=== PATIENT | male | born 1970 | race Caucasian/White ===

== ENCOUNTER 2020-08-01 20:54 | Outpatient (REF) | payer BC, SELFPAY ==
[2020-08-01 21:43] LABS: ALT 75 U/L (16-63); Alkaline Phosphatase 69 U/L (46-116); Anion Gap 9.5 mmol/L (3-11); BUN 13 mg/dL (7-18); Bilirubin, Total 0.2 mg/dL (0.2-1.0); CO2 24.5 mmol/L (21.0-32.0); CREATININE 0.75 mg/dL (0.70-1.30); Chloride 102 mmol/L (98-107); Cholesterol 333 mg/dL (<200); Glucose 96 mg/dL (74-106); HDL Cholesterol 31 mg/dL (40-60); Potassium 4.2 mmol/L (3.5-5.1); Sodium 136 mmol/L (136-145); Total Protein 6.9 g/dL (6.4-8.2); Triglyceride 1529 mg/dL (<150)
[2020-08-01 22:08] LABS: AST 57 U/L (15-37); LDL CHOLESTEROL 123 mg/dL (<100)
[2020-08-05 11:29] LABS: Hepatitis C Ab w Rflx HCV PCR Negative (Negative)
== END 2020-08-01 21:14 ==
LOC: NCHCN 20:54
PROVIDERS: PCP Family Medicine; Visit Provider Nurse Practitioner Family
DX: Z00.00 Encounter for general adult medical examination without abnormal findings (principal); Z13.220 Encounter for screening for lipoid disorders; Z13.228 Encounter for screening for other metabolic disorders; Z11.59 Encounter for screening for other viral diseases
CPT/HCPCS: 80053; 80061; 83721; 86803

== ENCOUNTER 2020-09-10 18:20 | Outpatient (REF) | payer BC, SELFPAY ==
[2020-09-10 21:27] LABS: Albumin 3.8 g/dL (3.4-5.0); Alkaline Phosphatase 94 U/L (46-116); Anion Gap 9.5 mmol/L (3-11); BUN 17 mg/dL (7-18); Bilirubin, Total 0.3 mg/dL (0.2-1.0); CO2 27.5 mmol/L (21.0-32.0); CREATININE 0.95 mg/dL (0.70-1.30); Calcium 8.9 mg/dL (8.5-10.1); Chloride 100 mmol/L (98-107); Cholesterol 246 mg/dL (<200); Glucose 114 mg/dL (74-106); HDL Cholesterol 25 mg/dL (40-60); Potassium 4.4 mmol/L (3.5-5.1); Sodium 137 mmol/L (136-145); Total Protein 7.1 g/dL (6.4-8.2)
[2020-09-10 21:55] LABS: ALT 140 U/L (16-63)
[2020-09-10 21:57] LABS: AST 130 U/L (15-37)
[2020-09-10 22:01] LABS: Triglyceride 2102 mg/dL (<150)
[2020-09-10 22:31] LABS: LDL CHOLESTEROL 68 mg/dL (<100)
== END 2020-09-10 18:40 ==
LOC: NCHCN 18:20
PROVIDERS: PCP Family Medicine; Visit Provider Nurse Practitioner Family
DX: R79.89 Other specified abnormal findings of blood chemistry (principal); E78.5 Hyperlipidemia, unspecified
CPT/HCPCS: 80053; 80061; 83721

== ENCOUNTER 2020-10-21 16:32 | Outpatient (REF) | payer BC, SELFPAY ==
[2020-10-21 20:50] LABS: HCT 44.4 % (40.0-50.0); HGB 14.9 g/dL (13.5-17.5); MCHC 33.6 % (32.0-36.0); MCV 92.3 fL (80-95); MPV 9.9 fL (8.0-11.0); Platelet Count 219 10^3/uL (130-400); RBC 4.81 10^6/uL (4.36-5.78); RDW 12.5 % (11.8-14.1); RDW-SD 42.6 fL; WBC 3.74 10^3/uL (4.4-10.8)
[2020-10-21 20:59] LABS: ALT 111 U/L (16-63); Albumin 3.7 g/dL (3.4-5.0); Alkaline Phosphatase 86 U/L (46-116); Anion Gap 10.1 mmol/L (3-11); BUN 11 mg/dL (7-18); Bilirubin, Total 0.5 mg/dL (0.2-1.0); CO2 24.9 mmol/L (21.0-32.0); CREATININE 0.94 mg/dL (0.70-1.30); Calcium 8.5 mg/dL (8.5-10.1); Chloride 99 mmol/L (98-107); Glucose 155 mg/dL (74-106); Potassium 3.9 mmol/L (3.5-5.1); Sodium 134 mmol/L (136-145); Total Protein 6.9 g/dL (6.4-8.2)
[2020-10-21 22:04] LABS: AST 79 U/L (15-37)
== END 2020-10-21 16:52 ==
LOC: NCHCN 16:32
PROVIDERS: PCP Family Medicine; Visit Provider Nurse Practitioner Family
DX: R79.89 Other specified abnormal findings of blood chemistry (principal); R03.0 Elevated blood-pressure reading, without diagnosis of hypertension; F10.10 Alcohol abuse, uncomplicated
CPT/HCPCS: 80053; 85027; 85610

== ENCOUNTER 2021-01-28 10:45 | Outpatient (REF) | payer BC, SELFPAY ==
[2021-01-28 13:27] LABS: Abs Immature Grans 0.01 10^3/uL (0.0-0.06); Absolute Basophil Count 0.03 10^3/uL (0.0-0.2); Absolute Eosinophil Count 0.12 10^3/uL (0.0-0.7); Absolute Lymphocyte Count 1.37 10^3/uL (1.2-3.4); Absolute Monocyte Count 0.45 10^3/uL (0.1-0.8); Absolute Neutrophil Count 1.46 10^3/uL (1.2-6.7); Basophils % 0.9; Eosinophils % 3.5; HGB 15.2 g/dL (13.5-17.5); Immature Grans % 0.3; Lymphocytes % 39.8; MCH 31.3 pg (27.0-33.0); MCHC 34.5 % (32.0-36.0); MCV 90.7 fL (80-95); MPV 9.3 fL (8.0-11.0); Monocytes % 13.1; Neutrophils % 42.4; Nucleated RBC 0 %; Platelet Count 202 10^3/uL (130-400); RBC 4.85 10^6/uL (4.36-5.78); RDW 12.3 % (11.8-14.1); RDW-SD 41.3 fL; WBC 3.44 10^3/uL (4.4-10.8)
[2021-01-28 13:59] LABS: AST 70 U/L (15-37); BUN 13 mg/dL (7-18); Cholesterol 276 mg/dL (<200); HDL Cholesterol 25 mg/dL (40-60)
[2021-01-28 14:27] LABS: ALT 115 U/L (16-63); Albumin 3.7 g/dL (3.4-5.0); Alkaline Phosphatase 98 U/L (46-116); Bilirubin, Total 0.4 mg/dL (0.2-1.0); CREATININE 0.9 mg/dL (0.70-1.30); Calcium 8.8 mg/dL (8.5-10.1); Chloride 101 mmol/L (98-107); Glucose 94 mg/dL (74-106); Potassium 4.6 mmol/L (3.5-5.1); Sodium 138 mmol/L (136-145)
[2021-01-28 14:28] LABS: Anion Gap 11.4 mmol/L (3-11); CO2 25.6 mmol/L (21.0-32.0); Triglyceride 1448 mg/dL (<150)
[2021-01-28 14:41] LABS: LDL CHOLESTEROL 77 mg/dL (<100)
== END 2021-01-28 10:46 | disposition home or self-care (01) ==
LOC: NCHCN 10:45
PROVIDERS: PCP Family Medicine; Visit Provider Nurse Practitioner Family
DX: E78.5 Hyperlipidemia, unspecified (principal); K76.0 Fatty (change of) liver, not elsewhere classified
CPT/HCPCS: 80053; 80061; 83721; 85025

== ENCOUNTER 2022-08-04 12:28 | Outpatient (REF) | payer BC, SELFPAY ==
[2022-08-04 20:46] LABS: Abs Immature Grans 0.02 10^3/uL (0.0-0.06); Absolute Basophil Count 0.04 10^3/uL (0.0-0.2); Absolute Eosinophil Count 0.18 10^3/uL (0.0-0.7); Absolute Lymphocyte Count 1.24 10^3/uL (1.2-3.4); Absolute Monocyte Count 0.84 10^3/uL (0.1-0.8); Absolute Neutrophil Count 2.61 10^3/uL (1.2-6.7); Basophils % 0.8; Eosinophils % 3.7; HCT 44.1 % (40.0-50.0); HGB 14.9 g/dL (13.5-17.5); Immature Grans % 0.4; Lymphocytes % 25.2; MCH 32.3 pg (27.0-33.0); MCHC 33.8 % (32.0-36.0); MCV 96 fL (80-95); MPV 10.4 fL (8.0-11.0); Neutrophils % 52.9; Platelet Count 273 10^3/uL (130-400); RBC 4.61 10^6/uL (4.36-5.78); RDW 12.7 % (11.8-14.1); RDW-SD 45.2 fL; WBC 4.93 10^3/uL (4.4-10.8)
[2022-08-04 20:58] LABS: ALT 71 U/L (16-63); AST 51 U/L (15-37); Albumin 3.5 g/dL (3.4-5.0); Alkaline Phosphatase 90 U/L (46-116); Anion Gap 11.6 mmol/L (3-11); BUN 4 mg/dL (7-18); Bilirubin, Total 0.3 mg/dL (0.2-1.0); CO2 24.4 mmol/L (21.0-32.0); CREATININE 0.7 mg/dL (0.70-1.30); Calcium 9.4 mg/dL (8.5-10.1); Chloride 100 mmol/L (98-107); Cholesterol 259 mg/dL (<200); Estimated GFR 110.87 (mL/min/1.73m2); Glucose 95 mg/dL (74-106); HDL Cholesterol 36 mg/dL (40-60); Potassium 4.2 mmol/L (3.5-5.1); Sodium 136 mmol/L (136-145); Total Protein 7.6 g/dL (6.4-8.2); Triglyceride 498 mg/dL (<150)
[2022-08-04 21:01] LABS: INR 0.9 (0.9-1.1)
[2022-08-04 21:06] LABS: Prothrombin Time 8.8 sec (9.3-11.0)
[2022-08-04 21:10] LABS: LDL CHOLESTEROL 145 mg/dL (<100)
== END 2022-08-04 12:29 | disposition home or self-care (01) ==
LOC: NCHCN 12:28
PROVIDERS: PCP Family Medicine; Visit Provider Nurse Practitioner Family
DX: E78.5 Hyperlipidemia, unspecified (principal); E78.1 Pure hyperglyceridemia; F32.89 Other specified depressive episodes; F10.10 Alcohol abuse, uncomplicated; K76.0 Fatty (change of) liver, not elsewhere classified; F17.200 Nicotine dependence, unspecified, uncomplicated; R79.89 Other specified abnormal findings of blood chemistry
CPT/HCPCS: 80053; 80061; 83721; 85025; 85610

== ENCOUNTER 2023-01-29 10:59 | Outpatient (REF) | payer BC, SELFPAY ==
[2023-01-29 16:52] LABS: ALT 39 U/L (16-63); AST 25 U/L (15-37); Albumin 3.6 g/dL (3.4-5.0); Alkaline Phosphatase 83 U/L (46-116); Anion Gap 6.6 mmol/L (3-11); BUN 10 mg/dL (7-18); Bilirubin, Total 0.2 mg/dL (0.2-1.0); CO2 30.4 mmol/L (21.0-32.0); Calcium 9.4 mg/dL (8.5-10.1); Chloride 105 mmol/L (98-107); Cholesterol 207 mg/dL (<200); Glucose 114 mg/dL (74-106); HDL Cholesterol 28 mg/dL (40-60); Hemoglobin A1C 5.7 % (<5.7); Potassium 4.2 mmol/L (3.5-5.1); Sodium 142 mmol/L (136-145); Total Protein 6.7 g/dL (6.4-8.2); Triglyceride 476 mg/dL (<150)
[2023-01-29 17:05] LABS: LDL CHOLESTEROL 106 mg/dL (<100)
== END 2023-01-29 11:00 | disposition home or self-care (01) ==
LOC: NCHCN 10:59
PROVIDERS: PCP Family Medicine; Visit Provider Family Medicine
DX: Z00.00 Encounter for general adult medical examination without abnormal findings (principal); R79.89 Other specified abnormal findings of blood chemistry; E78.5 Hyperlipidemia, unspecified; I10 Essential (primary) hypertension; Z13.1 Encounter for screening for diabetes mellitus
CPT/HCPCS: 80053; 80061; 83721; 83036

== ENCOUNTER 2024-10-10 09:48 | Outpatient (REF) | payer BC, SELFPAY ==
[2024-10-10 15:11] LABS: ALT 25 U/L (16-63); AST 15 U/L (15-37); Alkaline Phosphatase 70 U/L (46-116); Anion Gap 6.4 mmol/L (3-11); BUN 10 mg/dL (7-18); Bilirubin, Total 0.48 mg/dL (0.2-1.0); CO2 28.6 mmol/L (21.0-32.0); Calcium 9.2 mg/dL (8.5-10.1); Calculated LDL 177 mg/dL (<100); Chloride 107 mmol/L (98-107); Cholesterol 258 mg/dL (<200); Estimated GFR 89.44 (mL/min/1.73m2); Glucose 121 mg/dL (74-106); HDL Cholesterol 43 mg/dL (40-60); Potassium 4.5 mmol/L (3.5-5.1); Sodium 142 mmol/L (136-145); Triglyceride 190 mg/dL (<150)
== END 2024-10-10 09:49 | disposition home or self-care (01) ==
LOC: NCHCN 09:48
PROVIDERS: PCP Family Medicine; Visit Provider Family Medicine
DX: I10 Essential (primary) hypertension (principal); E78.5 Hyperlipidemia, unspecified
CPT/HCPCS: 80053; 80061